=== PATIENT | female | born 1940 | race Two or more races ===

== ENCOUNTER 2024-08-14 15:03 | Emergency (ER) | payer OTHER ==
[~2024-08-14] VITALS: Ht 162.6 cm; Wt 70.3 kg
[2024-08-14] MEDS ORDERED: KETOROLAC TROMETHAMINE 60 MG VIAL IM ONE (15:45)
[2024-08-14] MEDS ORDERED: ORPHENADRINE CITRATE 30 MG/ML AMPUL IM ONE (16:00)
[2024-08-14] MEDS ORDERED: NORFLEX100MG PO (18:40)
== END 2024-08-14 18:45 | disposition home or self-care (01) ==
LOC: ER 15:05
DX: M54.9 Dorsalgia, unspecified (principal); I10 Essential (primary) hypertension; E11.9 Type 2 diabetes mellitus without complications
CPT/HCPCS: 72131; 72170; 96372; 99284; J1885; J2360